=== PATIENT | female | born 1945 | race African-American/Black ===

== ENCOUNTER → 2018-01-19 22:22 | Outpatient (CLI) | payer MEDICARE | END | disposition home or self-care (01) | LOC: D.MAMMO 16:00 | DX: Z12.31 Encounter for screening mammogram for malignant neoplasm of breast (principal) ==

== ENCOUNTER 2019-10-31 23:47 | Outpatient (CLI) | payer MEDICARE | END 2019-10-31 23:59 | disposition home or self-care (01) | LOC: D.MAMMO 23:47 | PROVIDERS: ATTEND Internal Medicine | DX: Z12.31 Encounter for screening mammogram for malignant neoplasm of breast (principal) ==